=== PATIENT | female | born 1985 | race African-American/Black ===

== ENCOUNTER 2016-04-17 13:38 | Inpatient (IN) | payer OTHER ==
[~2016-04-17] VITALS: Ht 160 cm; Wt 82.6 kg
--- NOTE | ~2016-04-17 | H ---
[facility] [place] [address] HISTORY AND PHYSICAL Name: GELY CROOKS Room #: 534-P ADM IN M.R.#: [id number] Admission: 04/17/16 Attend Phys: Nikolas Roman MD Discharge: Date of : 87 Report #: [id number] THIS REPORT FOR: //name// CC: [facility] physician/PCP Nikolas Roman DATE OF SERVICE: 04/17/2016 CHIEF COMPLAINT: Overall pain. HISTORY OF PRESENT ILLNESS: The patient is a 30-year-old -[place] female who complaints she is having a sickle cell crisis. She presented to the ER for pain. 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 She states her pain has been getting worse. She tells me she has not had a doctor for over 2 years and she has been going to the ER regularly, getting pain medications. She used to see a Dr. Maddox, but she said she was terminated by him because she missed some appointments. PAST MEDICAL HISTORY: Significant for sickle cell disease, asthma and osteonecrosis of her hips. SOCIAL HISTORY: She denies alcohol. She does admit to marijuana use. She does not smoke otherwise tobacco. MEDICATIONS: Include OxyContin 80 mg b.i.d., folic acid 1 mg a day, Advair 1 puff b.i.d., Flovent 2 puffs b.i.d., she is on penicillin for this recent bronchitis, oxycodone 5/325 p.r.n. pain, prednisone 20 mg daily 2 daily, hydroxyurea 500 mg a day and Dilaudid 4 mg p.r.n. REVIEW OF SYSTEMS: CONSTITUTIONAL: No fever or chills. HEENT: No headaches or visual changes. CHEST: She complains of mild cough, although she states it is very mild. GASTROINTESTINAL: No nausea, vomiting, diarrhea or constipation. GENITOURINARY: No burning or frequency. EXTREMITIES: She has overall joint pain, although she is improving since being in the ER. PHYSICAL EXAMINATION: VITAL SIGNS: In the ER, blood pressure 150/100, pulse 80, respiratory rate 16 and O2 sats 99% on 2 liters. GENERAL: She is awake and alert. She is scratching all over her body and looks very agitated, but is in no acute distress. HEENT: Her mucous membranes are moist. NECK: Supple, without adenopathy, thyromegaly or bruits. [address] [address] HISTORY AND PHYSICAL Name: GELY CROOKS Room #: [address] [place] [address] IN M.R.#: [id number] Admission: 04/17/16 Attend Phys: Nikolas Roman MD Discharge: Date of : 87 Report #: [id number] CHEST: Clear to auscultation. CARDIOVASCULAR: Regular rhythm, without murmur. ABDOMEN: Soft. No masses. Bowel sounds are active. EXTREMITIES: No edema. Pulses are intact. SKIN: There is no rash. Just the redness where she has been scratching. LABORATORY DATA: WBC is 16.4, hemoglobin 12.2, hematocrit 34.9 and platelet count 406,000. The reticulocyte is pending. HCG is negative. Chest x-ray shows nothing abnormal. X-ray of the hip shows some sclerosis on the left femur, including the femoral head. ASSESSMENT: Sickle cell pain. We will go ahead and admit. We will get a reticulocyte count. I explained to her she clearly needs to have a primary care doctor as this is an appropriate care to be seeking hospitalization and ER to prescribe her pain meds. We will provide Ativan for agitation, Benadryl for itching, Zofran for nausea and IV fluids. She needs to have a plan for pain medication and primary care followup as an outpatient as well. <ELECTRONICALLY SIGNED> By: Chirag Woods MD 04/18/16 1307 [id number] Chirag Woods MD /nt
[~2016-04-17 13:38] MED LIST: ADVAIR 500-501 EACH INH; AMOXICILLIN 50500 MG PO; FLOVENT HFA10.6 GM IH; FOLIC ACID1 MG PO; NORVASC10 MG PO; OXYCONTIN CR 8080 M1 PO; PREDNISONE 20 M20 MG PO; PROVENTIL HFA6.7 G1 INH; VEETIDS 250MG250 M1 PO
[2016-04-17 13:39] VITALS: BP 150/100
[2016-04-17 15:38] LABS: HEMATOCRIT 34.9 % (37.0-47.0); HEMOGLOBIN 12.2 gm/dL (12.0-15.0); MCH 32.7 pg (26.0-34.0); MCHC 35.1 % (28.0-37.0); MCV 93.2 fL (80.0-100.0); RBC 3.75 mil/uL (4.20-5.00); RDW 15.3 % (10.5-14.5); WBC 16.4 thou/uL (4.0-11.0)
[2016-04-17] MEDS ORDERED: OXYCODONE-ACET1 EACH PO (16:45)
[2016-04-17] MEDS ORDERED: PHENERGAN 25 MG25 M1 PO (16:45)
[2016-04-17] MEDS ORDERED: DILAUDID 4 MG TA4 M1 PO (16:47)
[2016-04-17] MEDS ORDERED: HYDREA500 MG PO (16:47)
[2016-04-17] MEDS ORDERED: HYDROXYZINE HCL25 M1 PO (16:48)
[2016-04-17] MEDS ORDERED: OXYCONTIN80 M1 PO (17:30)
[2016-04-17 17:32] VITALS: BP 119/84
[2016-04-17 23:11] VITALS: BP 129/83
[2016-04-18 04:34] VITALS: BP 146/70
[2016-04-18 07:18] VITALS: BP 154/81
[2016-04-18 17:11] VITALS: BP 134/87
[2016-04-18 19:48] VITALS: BP 145/90
[2016-04-19 04:20] VITALS: BP 130/88
[2016-04-19 07:15] VITALS: BP 147/99
[2016-04-19] MEDS ORDERED: ALPRAZOLAM 0.50.5 M1 PO (11:43)
[2016-04-19] MEDS ORDERED: HYDROCODONE-APA1 TA1 PO (11:43)
[2016-04-19 12:32] LABS: HEMATOCRIT 33.8 % (37.0-47.0); MCHC 35.4 % (28.0-37.0); MCV 93.2 fL (80.0-100.0); RBC 3.63 mil/uL (4.20-5.00); RDW 15.1 % (10.5-14.5); WBC 15.3 thou/uL (4.0-11.0)
[2016-04-19 12:50] VITALS: BP 147/99
== END 2016-04-19 13:20 | disposition home or self-care (01) | DRG 812 ==
LOC: ER 13:38 → 5S 16:49 → EROBS 16:49 → 5S 17:16
PROVIDERS: Emergency Medicine; Internal Medicine
DX: D57.00 Hb-SS disease with crisis, unspecified (principal); M87.9 Osteonecrosis, unspecified; R65.10 Systemic inflammatory response syndrome (SIRS) of non-infectious origin without acute organ dysfunction; F12.90 Cannabis use, unspecified, uncomplicated; J45.909 Unspecified asthma, uncomplicated; Z79.899 Other long term (current) drug therapy; Z79.2 Long term (current) use of antibiotics
CPT/HCPCS: 10086